=== PATIENT | female | born 1990 | race African-American/Black ===

== ENCOUNTER 2018-05-11 07:06 | Emergency (ER) | payer OTHER ==
[~2018-05-11] VITALS: Ht 160 cm; Wt 116.1 kg
[2018-05-11 07:34] VITALS: BP 149/72
[2018-05-11 07:40] LABS: BILIRUBIN,URINE NEGATIVE (NEG); CLARITY,URINE CLOUDY; COLOR,URINE YELLOW; NITRITE,URINE NEGATIVE (NEG); PH,URINE 6.5; PROTEIN,URINE 100 mg/dL (NEG-TRACE); UROBILINOGEN,URINE 0.2 mg/dL (0.2 mg/dL)
--- NOTE | 2018-05-11 07:41 | PHYS DOC ---
Past Medical History Past Medical History: Depression Past Surgical History: , Other Alcohol Use: None Drug Use: None Adult General Chief Complaint Chief Complaint: PAIN ON URINATION HPI HPI Patient is a 28 year old female who presents with dysuria. Patient has been having symptoms over the last 7-10 days. She was evaluated at a different facility and treated with Keflex. Her symptoms did improve during the course of antibiotics but returned 2 days after she completed antibiotics. Today, she complains of some intermittent diffuse lower and left abdominal pain. She complains of dysuria. She does not have vaginal bleeding or discharge that is irregular. The patient is sexually active but states she does not have concerns about sexual transmitted infections. No fever or chills. No flank pain. Review of Systems Review of Systems Constitutional: Denies fever or chills Eyes: Denies change in visual acuity HENT: Denies nasal congestion Respiratory: Denies cough Cardiovascular: No additional information not addressed in HPI GI: Denies abdominal pain : Denies dysuria Musculoskeletal: Denies back pain Integument: Denies rash or skin lesions Neurologic: Denies headache Endocrine: Denies polyuria All other systems were reviewed and found to be within normal limits, except as documented in this note. Allergies Allergies Allergies Coded Allergies Type Severity Reaction Last Updated Verified No Known Drug Allergies 12/07/15 No Physical Exam Physical Exam Constitutional: Well developed, well nourished, no acute distress HENT: Normocephalic, atraumatic, bilateral external ears normal, oropharynx moist Neck: Normal range of motion, no tenderness, supple Cardiovascular:Heart rate regular rhythm, no murmur Lungs & Thorax: Bilateral breath sounds clear to auscultation Abdomen: Bowel sounds normal, soft, no tenderness, no masses, no pulsatile masses Skin: Warm Back: No tenderness Neurologic: Alert and oriented X 3 Psychologic: Affect normal Current Patient Data Vital Signs Vital Signs Date Time Temp Pulse Resp B/P (MAP) Pulse Ox O2 Delivery O2 Flow Rate FiO2 05/11/18 07:34 99.2 88 16 149/72 (97) 97 Room Air 99.2 Lab Values Laboratory Tests Test 05/11/18 07:24 05/11/18 07:30 Urine Collection Type Unknown Urine Color Yellow Urine Clarity Cloudy Urine pH 6.5 Urine Specific [employer] 1.010 Urine Protein 100 mg/dL (NEG-TRACE) Urine Glucose (UA) Negative mg/dL (NEG) Urine Ketones (Stick) Negative mg/dL (NEG) Urine Blood Large (NEG) Urine Nitrite Negative (NEG) Urine Bilirubin Negative (NEG) Urine Urobilinogen Dipstick 0.2 mg/dL (0.2 mg/dL) Urine Leukocyte Esterase Large (NEG) Urine RBC 11-20 /HPF (0-2) Urine WBC Tntc /HPF (0-4) Urine Bacteria Few /HPF (0-FEW) POC Urine HCG, Qualitative Hcg negative (Negative) EKG EKG [] Radiology/Procedures Radiology/Procedures [] Course & Med Decision Making Course & Med Decision Making Pertinent Labs and Imaging studies reviewed. (See chart for details) Patient is evaluated in the emergency department for possible urinary tract infection. Her urine as documented above. She does have pyuria but only a few bacteria. There are no nitrites. She did complete a course of Keflex already but had return of her symptoms. Today, a urine culture is added to her lab panel. I did also discussed with the patient the possibility of sexually transmitted disease as a cause for her positive UA findings that did not improve with Keflex. The patient feels confident that she does not have sexually -transmitted disease based on her sexual history and precautions. GC and chlamydia urine testing are also added to her lab panel but the patient is not empirically treated today. Plan today is to place her on Pyridium for the next 2 days for comfort. She is also placed on Levaquin 500 mg daily. Patient was advised she would be contacted if her test results returned positive. Patient is agreeable to this plan of care. All of her questions are answered prior to discharge home. [place] Disclaimer Henry Disclaimer This electronic medical record was generated, in whole or in part, using a voice recognition dictation system. Departure Departure Referrals: UNKNOWN PCP NAME (PCP) Scripts Levofloxacin (LEVAQUIN) 500 Mg Tablet 500 MG PO DAILY for 5 Days, #5 TAB Prov: VANDANA CHOU DO 05/11/18 Phenazopyridine Hcl (PYRIDIUM) 100 Mg Tablet 100 MG PO TID for 2 Days, #6 TAB Prov: VANDANA CHOU DO 05/11/18 VANDANA CHOU DO May 11, 2018 07:41
[2018-05-11 07:48] LABS: WBC,URINE TNTC /HPF (0-4)
[2018-05-11 07:49] LABS: BACTERIA,URINE FEW /HPF (0-FEW)
[2018-05-11] MEDS ORDERED: PHEN100T82 PO (08:00)
[2018-05-11] MEDS ORDERED: LEVO500T59 PO (08:00)
== END 2018-05-11 08:07 | disposition home or self-care (01) ==
LOC: ER 07:06
DX: N39.0 Urinary tract infection, site not specified (principal); F32.9 Major depressive disorder, single episode, unspecified; Z98.890 Other specified postprocedural states
CPT/HCPCS: 36415; 81001; 81025; 87086; 87491; 87591; 99284